=== PATIENT | female | born 1985 | race Caucasian/White ===

== ENCOUNTER → 2018-01-02 | Outpatient (CLI) | payer OTHER ==
--- NOTE | 2018-01-02 16:56 | US ---
EXAMINATION TYPE: US transvaginal DATE OF EXAM: 01/02/2018 COMPARISON: NONE CLINICAL HISTORY: Pelvic pain R10.2. History of ablation x 8 years ago. Spots regularly TECHNIQUE: Transvaginal (TV). Date of LMP: 12/25/2017, EXAM MEASUREMENTS: Uterus: 7.1 x 5.2 x 4.6 cm Endometrial Stripe: 0.3 cm Left Ovary: 2.5 x 1.7 x 1.4 cm 1. Uterus: Anteverted Irregular shaped cystic appearing lesion with internal echoes = 1.4 x 3.0 x 1.5 cm seen in fundal region 2. Endometrium: Limited visualization due to ablation 3. Right Ovary: Obscured by overlying bowel gas 4. Left Ovary: Follicles seen 5. Bilateral Adnexa: wnl 6. Posterior cul-de-sac: no free fluid Cervix- Nabothian cysts. Fluid seen at external os. IMPRESSION: Small endometrial cyst. There is no echogenic rim to suggest a gestational sac. No endome trial thickening seen. Multiple cervical cysts noted.
== END ==
LOC: RADUSWWP 15:58
PROVIDERS: ATTEND Obstetrics & Gynecology
DX: N85.8 Other specified noninflammatory disorders of uterus (principal); N88.8 Other specified noninflammatory disorders of cervix uteri
CPT/HCPCS: 76830

== ENCOUNTER → 2022-02-28 | Outpatient (CLI) | payer OTHER ==
[2022-02-28 12:17] VITALS: BP 105/71; PULSE 85; RESP 18; TEMP 98.2
--- NOTE | 2022-02-28 13:04 | P.GSHP ---
History of Present Illness H&P Date: 02/28/22 Chief Complaint: 2nd oppinion left breast cancer Hoda is a 36-year-old white female who is status post bilateral breast mammogram on [id number]. This was felt to be incomplete and additional left breast views were requested. A diagnostic left breast mammogram was then performed a 1521. This revealed some suspicious calcifications in the lower inner quadrant area of the left breast and stereotactic core biopsy was recommended. The stereotactic core biopsy was performed on . Stereotactic core biopsy revealed invasive ductal carcinoma, ER/MS positive, HER-2 negative, grade 3. She subsequently underwent bilateral breast MRI on . The results of the MRI were: Breasts: Right breast Low-level well-defined lesion of T1 hypointensity and T2 hyperintensity near the 12:00 level series 7 measuring 6 mm AP diameter of 3 mm Few additional small enhancing lesions throughout the right breast some under 5 mm associated with fibroglandular tissue There is one in the lateral aspect middle depth measuring just over 5 mm in the AP diameter by 3 mm with slightly irregular margins image 110 Left breast: Largest lesion 6 x 4 mm with lobulated contour in the middle depth upper aspect of the left breast; recommendation was for an attempted second look ultrasound of the 6 mm lesion in the right breast and a 4 mm mass anterior left breast near the 12 o'clock position Repeat bilateral ultrasound performed on 2921 The right breast: No concerning solid or cystic mass noted Left breast: 4 x 2 x 3 cm area consistent with a hematoma at the skin surface and MRI at 3 o'clock position Probable benign lymph nodes in the left axilla The lymph node axilla image 70 and 71 appeared to have eccentric cortical thickening may correspond to the slightly more suspicious lymph node seen on MRI Consider sampling of most superficial left axillary lymph node The patient initially saw Zoe Luciano about March 2021, with some concerns about a prominent inframammary ridge on the right. She was recommended to have an MRI but did not follow through at that time. She then started having left chest pain and was again seen by Francy Wagner and recommended to have a bilateral mammogram. At that time the mammogram was done and the lesion noted was identified. The patient's chest pain was evaluated by cardiology and felt to not require further workup. She also had genetic testing done and this was negative. She had not had any prior breast surgery. caffiene: 3 large Lj Hortons/day nicotine: stopped October 2021; used to smoke 1/2 PPD for 20 years chocolate: occasional hormones: none BCP: used them about 20 years ago for about 3 years Family History: 2 maternal great aunt: breast cancer Hormonal History: menarche: 10 breast fed: no, age at first birth16 hysterectomy in 2018 for bleeding, no cancer, left ovaries Surgical History: Hysterectomy Umbilical hernia repair Tubal ligation uterine ablation Medical History: norco BID for lower back and left leg pain Social History: Nicotine: Stopped October 2021, used to smoke a half a pack per day for 20 years Alcohol: Negative Drugs: THC oil - Constitutional Constitutional: Denies chills, Denies fever - EENT Eyes: denies blurred vision, denies pain Ears: deny: decreased hearing, tinnitus Ears, nose, mouth and throat: Denies headache, Denies sore throat - Breasts Breasts: bilateral: as per HPI - Cardiovascular Cardiovascular: Reports as per HPI, Denies chest pain, Denies shortness of breath - Respiratory Respiratory: Denies cough, Denies 7 - Gastrointestinal Gastrointestinal: Denies abdominal pain, Denies diarrhea, Denies nausea, Denies vomiting - Genitourinary (Female) Genitourinary: Denies dysuria, Denies hematuria - Menstruation Menstruation: Reports post hysterectomy - Musculoskeletal Musculoskeletal: Reports as per HPI - Integumentary Comment: psorasis - Neurological Neurological: Denies numbness, Denies weakness - Psychiatric Psychiatric: Reports anxiety, Reports depression - Endocrine Endocrine: Denies fatigue, Denies weight change - Hematologic/Lymphatic Comment: none - Allergic/Immunologic Allergic/Immunologic: Reports seasonal allergies Past Medical History History of Any Multi-Drug Resistant Organisms: None Reported Smoking Status: Former smoker Medications and Allergies Home Medications Medication Instructions Recorded Confirmed Type Cider Vinegar [Apple Cider Vinegar] 300 mg PO DAILY 02/28/22 02/28/22 History Dandelion Root 1 tab PO DAILY 02/28/22 02/28/22 History HYDROcodone/APAP 5-325MG [Logan 1 - 2 tab PO Q6HR PRN 02/28/22 02/28/22 History 5-325] Molasses 1 tsp PO DAILY 02/28/22 02/28/22 History Thc Oil 1 dropper PO DAILY 02/28/22 02/28/22 History Allergies Allergy/AdvReac Type Severity Reaction Status Date / Time No Known Allergies Allergy Verified 02/28/22 12:10 Surgical - Exam Vital Signs Temp Pulse Resp BP Pulse Ox 98.2 F 85 18 105/71 98 02/28/22 12:14 02/28/22 12:14 02/28/22 12:14 02/28/22 12:14 02/28/22 12:14 BMI 31.8 - General no distress - Eyes normal ocular movement - ENT no hearing loss - Neck trachea midline - Respiratory normal respiratory effort - Cardiovascular Rhythm: regular Heart Sounds: normal: S1, S2 - Integumentary normal turgor - Musculoskeletal normal gait - Psychiatric oriented to time, oriented to person, oriented to place, speech is normal, memory intact Breast Exam: BRA: 38C inspection: Bilateral grade 2/3 ptosis Palpation: Right breast: Position on exam no dominant masses or nodules of concern right axilla: No axillary adenopathy of concern Left breast: Increased nodularity at site of prior core biopsy left side approximately 1 cm in size otherwise no dominant mass or nodule is of concern Left axilla: No adenopathy of concern Results Mammogram and MRI reviewed in detail with Dr. Linton from radiology Assessment and Plan Assessment: Impression: Stage IA left breast invasive ductal carcinoma MRI questionable additional lesions in both breasts Genetic testing negative Plan: Repeat ultrasound of both breast as per Dr. dolan which to further evaluate MRI changes CC: Francy Wagner
== END ==
LOC: WWCWWP 12:01
PROVIDERS: ATTEND Surgery
DX: C50.912 Malignant neoplasm of unspecified site of left female breast (principal); Z17.0 Estrogen receptor positive status [ER+]; Z87.891 Personal history of nicotine dependence

== ENCOUNTER → 2022-02-28 | Outpatient (CLI) | payer OTHER | END | disposition home or self-care (01) | LOC: RADUSWWP 13:04 | PROVIDERS: ATTEND Surgery | DX: Z53.9 Procedure and treatment not carried out, unspecified reason (principal) ==